=== PATIENT | female | born 1995 | race Caucasian/White ===

== ENCOUNTER 2016-10-04 11:26 | Emergency (ER) | payer OTHER ==
[2016-10-04 12:51] LABS: HEMOGLOBIN 12.3 gm/dl (12.3-15.3); RED BLOOD COUNT 4.25 M/UL (4.00-5.10); WHITE BLOOD COUNT 9.2 K/UL (4.5-11.0)
[2016-10-04 13:05] LABS: BUN/CREATININE RATIO 10 (0-10)
== END 2016-10-04 14:45 | disposition home or self-care (01) ==
LOC: ER1 11:26
PROVIDERS: Physician Assistant
DX: N39.0 Urinary tract infection, site not specified (principal); Z88.0 Allergy status to penicillin; Z90.49 Acquired absence of other specified parts of digestive tract
CPT/HCPCS: 36415; 80053; 81001; 82150; 83690; 84703; 85025; 96372; 96374; 99284; J0500; J2405; J7050; Q9962

== ENCOUNTER 2020-11-25 18:41 | Emergency (ER) | payer OTHER ==
[~2020-11-25 18:41] MED LIST: FLEXERIL 10 MG10 MG PO; IBUPROFEN600 MG PO; OMNICEF 300 MG300 MG PO; PROTONIX40 MG PO
[2020-11-25 20:54] LABS: HEMOGLOBIN 12.6 gm/dl (12.3-15.3); RED BLOOD COUNT 4.4 M/UL (4.00-5.10); WHITE BLOOD COUNT 10.5 K/UL (4.5-11.0)
[2020-11-25 22:04] LABS: BUN/CREATININE RATIO 9 (0-10)
[2020-11-26] MEDS ORDERED: MACROBID 100 M100 MG PO (01:14)
[2020-11-26] MEDS ORDERED: ZOFRAN4 MG PO (01:14)
== END 2020-11-26 01:45 | disposition home or self-care (01) ==
LOC: ER1 18:41
PROVIDERS: Physician Assistant Medical
DX: N39.0 Urinary tract infection, site not specified (principal); Z90.49 Acquired absence of other specified parts of digestive tract; Z88.0 Allergy status to penicillin; Z88.8 Allergy status to other drugs, medicaments and biological substances
CPT/HCPCS: 80053; 81001; 83690; 84702; 84703; 85025; 96374; 99284; J2405; Q9967

== ENCOUNTER → 2020-11-26 | Outpatient (CLI) | payer OTHER ==
[~2020-11-26] MED LIST changes: +MACROBID 100 M100 MG PO; +ZOFRAN4 MG PO
== END ==
LOC: US 09:20
DX: R10.9 Unspecified abdominal pain (principal)
CPT/HCPCS: 76830

== ENCOUNTER 2021-01-11 03:53 | Emergency (ER) | payer OTHER ==
[2021-01-11 04:19] LABS: BORDETELLA PARAPERTUSSIS Not Detected (Not Detectd); BORDETELLA PERTUSSIS Not Detected (Not Detectd); CHLAMYDIA PNEUMONIAE Not Detected (Not Detectd); CORONAVIRUS HKU1 Not Detected (Not Detectd); CORONAVIRUS NL63 Not Detected (Not Detectd); CORONAVIRUS OC43 Not Detected (Not Detectd); CORONOAVIRUS 229E Not Detected (Not Detectd); HUMAN METAPNEUMOVIRUS Not Detected (Not Detectd); HUMAN RHINOVIRUS/ENTEROVIRUS Not Detected (Not Detectd); INFLUENZA A Not Detected (Not Detectd); INFLUENZA B Not Detected (Not Detectd); MYCOPLASMA PNEUMONIAE Not Detected (Not Detectd); PARAINFLUENZA VIRUS 1 Not Detected (Not Detectd); PARAINFLUENZA VIRUS 2 Not Detected (Not Detectd); PARAINFLUENZA VIRUS 4 Not Detected (Not Detectd); RESPIRATORY SYNCYTIAL VIRUS Not Detected (Not Detectd)
[2021-01-11 05:41] LABS: PARAINFLUENZA VIRUS 3 DETECTED (Not Detectd); SARS-CoV-2 NOT DETECTED (Not Detectd)
== END 2021-01-11 05:49 | disposition home or self-care (01) ==
LOC: ER1 03:53
PROVIDERS: Physician Assistant
DX: O99.512 Diseases of the respiratory system complicating pregnancy, second trimester (principal); J02.9 Acute pharyngitis, unspecified; Z90.49 Acquired absence of other specified parts of digestive tract; Z88.0 Allergy status to penicillin
CPT/HCPCS: 87081; 87633; 87880; 99283

== ENCOUNTER 2021-01-12 23:38 | Emergency (ER) | payer OTHER | END 2021-01-13 00:24 | disposition home or self-care (01) | LOC: ER1 23:38 | DX: O99.891 Other specified diseases and conditions complicating pregnancy (principal); R09.81 Nasal congestion; Z88.0 Allergy status to penicillin; Z3A.18 18 weeks gestation of pregnancy | CPT/HCPCS: 99283 ==

== ENCOUNTER 2021-05-03 08:03 | Outpatient (CLI) | payer OTHER ==
[2021-05-03] MEDS ORDERED: ZOFRAN 4 MG TAB4 MG PO (12:22)
[2021-05-03] MEDS ORDERED: MACROBID 100 M100 MG PO (12:22)
== END 2021-05-03 11:29 | disposition home or self-care (01) ==
LOC: GENOP 08:03
DX: O99.891 Other specified diseases and conditions complicating pregnancy (principal); R10.30 Lower abdominal pain, unspecified; M54.9 Dorsalgia, unspecified; Z91.018 Allergy to other foods; Z3A.34 34 weeks gestation of pregnancy
CPT/HCPCS: 81001; 96372; J0696

== ENCOUNTER 2021-05-25 16:36 | Inpatient (IN) | payer OTHER ==
[~2021-05-25] VITALS: Ht 160 cm; Wt 115.7 kg
[~2021-05-25 16:36] MED LIST changes: +ZOFRAN 4 MG TAB4 MG PO
[2021-05-25 18:36] LABS: RED BLOOD COUNT 3.99 M/UL (4.00-5.10); WHITE BLOOD COUNT 10.2 K/UL (4.5-11.0)
[2021-05-27] MEDS ORDERED: COLACE 100MG C100 MG PO (11:07)
[2021-05-27] MEDS ORDERED: IBUPROFEN600 MG PO (11:07)
[2021-05-27] MEDS ORDERED: HYDROCODON-ACE1 EAC6 PO (11:07)
[2021-05-28 08:26] LABS: HEMOGLOBIN 9.2 gm/dl (12.3-15.3)
== END 2021-05-29 13:55 | disposition home or self-care (01) | DRG 788 ==
LOC: GENOP 16:36 → CDU 17:57 → OB 05-26 01:48
PROVIDERS: Obstetrics & Gynecology; ADMIT Obstetrics & Gynecology
PROC: 10D00Z1 Extraction of Products of Conception, Low, Open Approach (ICD-10-PCS; principal; 2021-05-27 12:21)
DX: O41.03X0 Oligohydramnios, third trimester, not applicable or unspecified (principal); Z3A.37 37 weeks gestation of pregnancy; Z37.0 Single live birth; O61.8 Other failed induction of labor; O99.824 Streptococcus B carrier state complicating childbirth; O99.213 Obesity complicating pregnancy, third trimester; E66.9 Obesity, unspecified; Z88.0 Allergy status to penicillin
CPT/HCPCS: 81001; 82800; 85014; 85018; 85025; 90715; C9113; G0378; J0690; J1885; J2274; J2370; J2405; J2590; J3010; J7120